=== PATIENT | female | born 1945 ===

== ENCOUNTER 2021-07-25 09:10 | Outpatient (CLI) | payer MEDICARE ==
[2021-07-25] MEDS ORDERED: Iopamidol 300 61% 100 ML VIAL FS ONE (09:37)
== END 2021-07-25 09:11 | disposition home or self-care (01) ==
LOC: CSHCT 09:10
PROVIDERS: ATTEND Internal Medicine Gastroenterology
DX: R10.13 Epigastric pain (principal)
CPT/HCPCS: 74170; 82565; Q9967